=== PATIENT | male | born 1960 | race Hispanic/Latino ===

== ENCOUNTER 2020-05-11 10:54 | Emergency (ER) | payer OTHER ==
[2020-05-11 12:21] LABS: BASOPHILS % (AUTO) 0.4 % (0.0-5.0); EOSINOPHILS % (AUTO) 7.5 % (0.0-8.0); LYMPHOCYTES % (AUTO) 19.1 % (21.0-51.0); MEAN CORPUSCULAR HEMOGLOBIN 28.1 pg (27.0-33.0); MEAN CORPUSCULAR HGB CONC 32.1 g/dL (32.0-36.0); MEAN CORPUSCULAR VOLUME 87.3 fL (79-99); MONOCYTES % (AUTO) 8.9 % (3.0-13.0); NEUTROPHILS % (AUTO) 63.7 % (40.0-77.0); PLATELET COUNT (AUTO) 172 K/uL (130-400); RED BLOOD CELL COUNT(AUTO) 4.81 MIL/uL (4.50-6.20); WHITE BLOOD COUNT (AUTO) 5.2 K/uL (4.8-10.8)
[2020-05-11 12:33] LABS: CREATININE 0.9 mg/dL (0.5-1.5); POTASSIUM 3.9 mmol/L (3.5-5.1)
[2020-05-11 12:37] LABS: ALBUMIN 3.6 g/dL (3.5-5.0); BILIRUBIN,TOTAL 0.4 mg/dL (0.2-1.0); TOTAL PROTEIN, SERUM 8.1 g/dL (6.0-8.3)
[2020-05-11 14:41] LABS: INR 0.97 (0.85-1.15); PARTIAL THROMBOPLASTIN TIME 24.9 SEC (26.3-35.5); PROTHROMBIN TIME 10.5 SEC (9.6-11.6)
[2020-05-15] MEDS ORDERED: BACL10TA PO (16:12)
[2020-05-15] MEDS ORDERED: OMEP40CA13 PO (16:12)
[2020-05-15] MEDS ORDERED: ATOR40TA71 PO (16:12)
[2020-05-15] MEDS ORDERED: CYAN100010 PO (16:12)
[2020-05-15] MEDS ORDERED: CLOP75TA32 PO (16:12)
[2020-05-15] MEDS ORDERED: METO25TA6 PO (16:12)
[2020-05-15] MEDS ORDERED: LISI-613 PO (16:12)
[2020-05-15] MEDS ORDERED: AEC81 PO (16:12)
== END 2020-05-11 15:14 | disposition home or self-care (01) ==
LOC: EDH 10:54
DX: I72.4 Aneurysm of artery of lower extremity (principal); R19.09 Other intra-abdominal and pelvic swelling, mass and lump; I10 Essential (primary) hypertension; Z87.891 Personal history of nicotine dependence; Z88.0 Allergy status to penicillin; N50.3 Cyst of epididymis; I86.1 Scrotal varices; L91.0 Hypertrophic scar
CPT/HCPCS: 36415; 76870; 80053; 85025; 85610; 85730

== ENCOUNTER → 2020-05-11 | Outpatient (CLI) | payer OTHER ==
[~2020-05-11] MED LIST: AEC81 PO; ATOR40TA71 PO; BACL10TA PO; CLOP75TA32 PO; CYAN100010 PO; LISI-613 PO; METO25TA6 PO; OMEP40CA13 PO
== END | disposition home or self-care (01) ==
LOC: RAH 09:12
PROVIDERS: ATTEND Family Medicine
DX: N50.3 Cyst of epididymis (principal); I86.1 Scrotal varices; I72.8 Aneurysm of other specified arteries; L91.0 Hypertrophic scar
CPT/HCPCS: 76870

== ENCOUNTER → 2020-05-16 | Outpatient (CLI) | payer OTHER ==
[~2020-05-16] MED LIST changes: +CLINDAMYCIN 900 MG/D5% WATER 50 ML IV SCH; +CLINDAMYCIN IN 0.9 % SOD CHLOR 50 ML IV SCH
== END | disposition home or self-care (01) ==
LOC: DAH 05-11 10:00 → EDSTATUS 10:30
PROVIDERS: ATTEND Thoracic Surgery (Cardiothoracic Vascular Surgery)
DX: I72.8 Aneurysm of other specified arteries (principal); R10.31 Right lower quadrant pain; L91.0 Hypertrophic scar
CPT/HCPCS: 36415; 71045; 93005; J3490

== ENCOUNTER → 2020-06-26 | Outpatient (CLI) | payer OTHER ==
[~2020-06-26] MED LIST changes: -CLINDAMYCIN 900 MG/D5% WATER 50 ML IV SCH; -CLINDAMYCIN IN 0.9 % SOD CHLOR 50 ML IV SCH
[2020-06-26 11:01] LABS: CREATININE 0.9 mg/dL (0.5-1.5)
== END | disposition home or self-care (01) ==
LOC: LAB 10:22
PROVIDERS: ATTEND Thoracic Surgery (Cardiothoracic Vascular Surgery)
DX: I72.4 Aneurysm of artery of lower extremity (principal)
CPT/HCPCS: 36415; 82565; 84520

== ENCOUNTER → 2020-07-09 | Outpatient (CLI) | payer OTHER ==
[~2020-07-09] MED LIST changes: +CLOP75TA14 PO; +FAMO40TA7 PO; +IOHEXOL 350 MG/ML 100ML INFUS..BTL IV ONE; -LISI-613 PO; +LISI20TA24 PO
== END | disposition home or self-care (01) ==
LOC: RAH 10:06
PROVIDERS: ATTEND Thoracic Surgery (Cardiothoracic Vascular Surgery)
DX: I72.4 Aneurysm of artery of lower extremity (principal); I25.10 Atherosclerotic heart disease of native coronary artery without angina pectoris
CPT/HCPCS: 73706; Q9967

== ENCOUNTER 2020-07-12 11:07 | Day surgery (SDC) | payer OTHER ==
[2020-07-10 13:46] LABS: BASOPHILS % (AUTO) 0.5 % (0.0-5.0); EOSINOPHILS % (AUTO) 6.7 % (0.0-8.0); LYMPHOCYTES % (AUTO) 19.1 % (21.0-51.0); MEAN CORPUSCULAR HEMOGLOBIN 26.9 pg (27.0-33.0); MEAN CORPUSCULAR HGB CONC 31.9 g/dL (32.0-36.0); MEAN CORPUSCULAR VOLUME 84.5 fL (79-99); MONOCYTES % (AUTO) 6.6 % (3.0-13.0); NEUTROPHILS % (AUTO) 66.7 % (40.0-77.0); PLATELET COUNT (AUTO) 208 K/uL (130-400); RED BLOOD CELL COUNT(AUTO) 5.09 MIL/uL (4.50-6.20); RED CELL DISTRIBUTION WIDTH 13.7 % (11.0-15.5); WHITE BLOOD COUNT (AUTO) 8.2 K/uL (4.8-10.8)
[2020-07-10 13:51] LABS: APPEARANCE,URINE Clear (CLEAR); BILIRUBIN,URINE Negative (NEGATIVE); COLOR,URINE Yellow (YELLOW); GLUCOSE, URINE (UA) Negative (NEGATIVE); KETONES,URINE Negative (NEGATIVE); LEUKOCYTE ESTERASE ,URINE Negative (NEGATIVE); NITRATE,URINE Negative (NEGATIVE); OCCULT BLOOD,URINE Negative (NEGATIVE); PH,URINE 5.5 (5.0-8.0); PROTEIN,URINE Negative (NEGATIVE)
[2020-07-10 13:53] LABS: CREATININE 1.1 mg/dL (0.5-1.5); POTASSIUM 4.2 mmol/L (3.5-5.1)
[2020-07-10 13:56] LABS: PROTHROMBIN TIME 10.9 SEC (9.6-11.6)
[2020-07-10 13:58] LABS: PARTIAL THROMBOPLASTIN TIME 23.8 SEC (26.3-35.5)
[~2020-07-12] VITALS: Ht 157.5 cm; Wt 78.0 kg
[~2020-07-12 11:07] MED LIST changes: -BACL10TA PO; +CLINDAMYCIN 900 MG/D5% WATER 50 ML IV SCH; -CLOP75TA32 PO; -IOHEXOL 350 MG/ML 100ML INFUS..BTL IV ONE; -OMEP40CA13 PO; +SODIUM CHLORIDE 0.9% 500ML 500 ML IV SCH
[2020-07-12 11:15] VITALS: BP 126/78
[2020-07-12] MEDS ORDERED: SODIUM CHLORIDE 0.9% 1000ML 1,000 ML IV ONE (11:32)
[2020-07-12] MEDS ORDERED: SODIUM BICARB 50MEQ 50ML VIAL 50 ML ONE (13:29)
[2020-07-12] MEDS ORDERED: IODIXANOL 320 MG/ML 100 ML VIAL ONE (13:30)
[2020-07-12] MEDS ORDERED: MEPERIDINE-PF 25 MG/ML SYG ONE ×2 (13:30→14:30)
[2020-07-12] MEDS ORDERED: NITROGLYCERIN 2 MG/VIAL VIAL IV ONE (13:30)
[2020-07-12] MEDS ORDERED: MIDAZOLAM HCL 1 MG/ML 2ML VIAL ONE ×2 (13:30→14:31)
[2020-07-12] MEDS ORDERED: HEPARIN SODIUM 1000UNIT/ML 10ML VIAL ONE (13:30)
[2020-07-12] MEDS ORDERED: LIDOCAINE HCL 2% 20ML ONE (13:30)
[2020-07-12] MEDS ORDERED: CLINDAMYCIN 600 MG/D5% WATER 100 ML IV ONE (14:23)
[2020-07-12] MEDS ORDERED: IOHEXOL-350 50ML VIAL IV ONE (15:18)
[2020-07-12] MEDS ORDERED: CLOPIDOGREL BISULFATE 300 MG TAB ONE (15:51)
[2020-07-12] MEDS ORDERED: ASPIRIN 325MG EC TAB 325 MG TABLET.DR PO ONE (15:51)
[2020-07-12] MEDS ORDERED: SODIUM CHLORIDE 0.9% 1000ML 1,000 ML IV SCH (16:15)
== END 2020-07-12 22:30 | disposition home or self-care (01) ==
LOC: DAH 11:07 → DAHIP 16:13 → UNDOADMOB 16:13 → DAH 22:30 → UNDODISOB 22:30
PROVIDERS: ATTEND Internal Medicine Cardiovascular Disease
DX: I70.201 Unspecified atherosclerosis of native arteries of extremities, right leg (principal); Z20.822 Contact with and (suspected) exposure to COVID-19; I25.10 Atherosclerotic heart disease of native coronary artery without angina pectoris; I10 Essential (primary) hypertension; E78.5 Hyperlipidemia, unspecified; Z95.5 Presence of coronary angioplasty implant and graft; Z95.828 Presence of other vascular implants and grafts; Z79.01 Long term (current) use of anticoagulants; Z79.82 Long term (current) use of aspirin; Z79.899 Other long term (current) drug therapy
CPT/HCPCS: 36415; 37226; 71045; 75710; 80048; 81003; 85025; 85610; 85730; 86850; 86900; 86901; 86922; 93005; C1725; C1760; C1769 ×3; C1874; C1887; C1893 ×2; C1894; C9803; J1644 ×2; J2175 ×2; J2250 ×2; J3490 ×4; J7030; Q9967 ×2; U0003; 99156; 99157; G0378

== ENCOUNTER → 2020-12-25 | Outpatient (CLI) | payer OTHER ==
[~2020-12-25] MED LIST changes: -CLINDAMYCIN 900 MG/D5% WATER 50 ML IV SCH; -SODIUM CHLORIDE 0.9% 500ML 500 ML IV SCH
== END | disposition home or self-care (01) ==
LOC: LAB 11:04
PROVIDERS: ATTEND Internal Medicine Cardiovascular Disease
DX: I25.10 Atherosclerotic heart disease of native coronary artery without angina pectoris (principal); I72.4 Aneurysm of artery of lower extremity
CPT/HCPCS: 36415; 82565; 84520

== ENCOUNTER → 2023-07-06 | Outpatient (CLI) | payer OTHER ==
[~2023-07-06] MED LIST changes: +CLOP-31 PO; -CLOP75TA14 PO
[2023-07-06 12:12] LABS: BASOPHILS # (AUTO) 0.04 K/uL (0.00-0.20); BASOPHILS % (AUTO) 0.6 % (0.0-5.0); EOSINOPHILS # (AUTO) 0.52 K/uL (0.00-0.70); EOSINOPHILS % (AUTO) 7.3 % (0.0-8.0); HEMATOCRIT 39.8 % (42-54); IMMATURE GRANULOCYTE ABSOLUTE 0.05 K/uL (0-1); LYMPHOCYTES # (AUTO) 1.1 K/uL (1.0-4.8); LYMPHOCYTES % (AUTO) 15.2 % (21.0-51.0); MEAN CORPUSCULAR HEMOGLOBIN 30.6 pg (27.0-33.0); MEAN CORPUSCULAR HGB CONC 34.2 g/dL (32.0-36.0); MEAN CORPUSCULAR VOLUME 89.4 fL (79-99); MONOCYTES # (AUTO) 0.6 K/uL (0.1-1.0); NEUTROPHILS # (AUTO) 4.8 K/uL (1.8-7.7); NEUTROPHILS % (AUTO) 68.2 % (40.0-77.0); PLATELET COUNT (AUTO) 228 K/uL (130-400); RED BLOOD CELL COUNT(AUTO) 4.45 MIL/uL (4.50-6.20); RED CELL DISTRIBUTION WIDTH 16.8 % (11.0-15.5); WHITE BLOOD COUNT (AUTO) 7.1 K/uL (4.8-10.8)
[2023-07-06 12:16] LABS: CREATININE 0.9 mg/dL (0.5-1.5); POTASSIUM 4.1 mmol/L (3.5-5.1)
[2023-07-06 12:29] LABS: INR 0.94 (0.85-1.15); PROTHROMBIN TIME 10.9 SEC (9.6-11.6)
[2023-07-06 12:31] LABS: PARTIAL THROMBOPLASTIN TIME 24.5 SEC (26.3-35.5)
== END | disposition home or self-care (01) ==
LOC: LAB 09:29
PROVIDERS: ATTEND Internal Medicine Cardiovascular Disease
DX: I87.1 Compression of vein (principal); M79.604 Pain in right leg; M79.605 Pain in left leg; Z68.30 Body mass index [BMI] 30.0-30.9, adult; Z95.5 Presence of coronary angioplasty implant and graft
CPT/HCPCS: 36415; 80048; 85025; 85610; 85730

== ENCOUNTER → 2023-12-28 | Outpatient (CLI) | payer OTHER | END | disposition home or self-care (01) | LOC: LAB 11:45 | PROVIDERS: ATTEND Internal Medicine Cardiovascular Disease | DX: I73.9 Peripheral vascular disease, unspecified (principal) | CPT/HCPCS: 36415; 80048 ==

== ENCOUNTER → 2023-12-31 | Outpatient (CLI) | payer OTHER ==
[~2023-12-31] MED LIST changes: +IOHEXOL 350 MG/ML 100ML INFUS..BTL IV ONE
== END | disposition home or self-care (01) ==
LOC: RAH 08:19
PROVIDERS: ATTEND Internal Medicine Cardiovascular Disease
DX: I72.4 Aneurysm of artery of lower extremity (principal); I70.8 Atherosclerosis of other arteries; M47.815 Spondylosis without myelopathy or radiculopathy, thoracolumbar region; I70.0 Atherosclerosis of aorta; Z90.49 Acquired absence of other specified parts of digestive tract; Z95.828 Presence of other vascular implants and grafts
CPT/HCPCS: 75635; Q9967

== ENCOUNTER 2024-02-04 06:45 | Day surgery (SDC) | payer OTHER ==
[2024-02-02 12:10] VITALS: BP_SYST 164; BP_SYST 185; BP_DIAS 76; BP_DIAS 84; PULSE 82; RESP 18; TEMP 98.6
[2024-02-02 12:57] LABS: BASOPHILS # (AUTO) 0.03 K/uL (0.00-0.20); BASOPHILS % (AUTO) 0.4 % (0.0-5.0); EOSINOPHILS # (AUTO) 0.22 K/uL (0.00-0.70); EOSINOPHILS % (AUTO) 2.9 % (0.0-8.0); HEMATOCRIT 40.8 % (42-54); IMMATURE GRANULOCYTE ABSOLUTE 0.01 K/uL (0-1); LYMPHOCYTES # (AUTO) 0.8 K/uL (1.0-4.8); LYMPHOCYTES % (AUTO) 10.7 % (21.0-51.0); MEAN CORPUSCULAR HEMOGLOBIN 28.5 pg (27.0-33.0); MEAN CORPUSCULAR HGB CONC 32.6 g/dL (32.0-36.0); MEAN CORPUSCULAR VOLUME 87.4 fL (79-99); MONOCYTES # (AUTO) 0.5 K/uL (0.1-1.0); MONOCYTES % (AUTO) 6.1 % (3.0-13.0); NEUTROPHILS % (AUTO) 79.8 % (40.0-77.0); PLATELET COUNT (AUTO) 168 K/uL (130-400); RED BLOOD CELL COUNT(AUTO) 4.67 MIL/uL (4.50-6.20); RED CELL DISTRIBUTION WIDTH 13.5 % (11.0-15.5); WHITE BLOOD COUNT (AUTO) 7.6 K/uL (4.8-10.8)
[2024-02-02 13:05] LABS: CREATININE 0.9 mg/dL (0.5-1.3); POTASSIUM 3.9 mmol/L (3.5-5.1)
[2024-02-02 13:12] LABS: APPEARANCE,URINE CLEAR (CLEAR); BILIRUBIN,URINE NEGATIVE (NEGATIVE); COLOR,URINE YELLOW (YELLOW); GLUCOSE, URINE (UA) NEGATIVE (NEGATIVE); KETONES,URINE NEGATIVE (NEGATIVE); LEUKOCYTE ESTERASE ,URINE NEGATIVE Leu/uL (NEGATIVE); NITRATE,URINE NEGATIVE (NEGATIVE); OCCULT BLOOD,URINE NEGATIVE (NEGATIVE); PROTEIN,URINE NEGATIVE (NEGATIVE)
[2024-02-02 13:13] LABS: ADD UA MICROSCOPIC YES
[2024-02-02 13:15] LABS: MUCUS,URINE RARE LPF (None Seen); WBC,URINE 0-1 /HPF (0-1)
[2024-02-02 13:18] LABS: B-TYPE NATRIURETIC PEPTIDE 104 pg/mL (0-100)
[2024-02-02 13:28] LABS: INR 0.99 (0.85-1.15); PROTHROMBIN TIME 10.7 SEC (9.6-11.6)
[2024-02-02 13:29] LABS: PARTIAL THROMBOPLASTIN TIME 25.4 SEC (26.3-35.5)
[2024-02-04] VITALS (11 sets, daily range): BP systolic 123–156; BP diastolic 59–79; PULSE 44–90; RESP 11–21; TEMP 97–98.1
[~2024-02-04] VITALS: Ht 157.5 cm; Wt 73.8 kg
[~2024-02-04 06:45] MED LIST changes: -ATOR40TA71 PO; -CYAN100010 PO; -FAMO40TA7 PO; +GABA-529 PO; -IOHEXOL 350 MG/ML 100ML INFUS..BTL IV ONE; +RIVA2.5T PO; +ROSU40TA88 PO
[2024-02-04] MEDS: 0.9%NACL 1000ML 1,000 ML IV ONE (08:11)
[2024-02-04] MEDS ORDERED: MEPERIDINE-PF 25 MG/ML SYG ONE ×2 (09:06→09:51)
[2024-02-04] MEDS ORDERED: LIDOCAINE HCL 400MG/20ML VIAL ONE (09:06)
[2024-02-04] MEDS ORDERED: HEParin 10,000 UNIT/10ML (1,000 UNIT/ML) VIAL ONE (09:06)
[2024-02-04] MEDS ORDERED: HEParin-NS 1,000 UNIT/500 ML 1,500 ML IV ONE (09:06)
[2024-02-04] MEDS ORDERED: MIDAZOLAM HCL 1 MG/ML 2ML VIAL ONE ×2 (09:06→09:51)
[2024-02-04] MEDS ORDERED: NITROGLYCERIN 50MG VIAL ONE (09:07)
[2024-02-04] MEDS ORDERED: IODIXANOL 320 MG/ML 100 ML VIAL ONE (09:09)
[2024-02-04] MEDS ORDERED: ATROPINE 0.4MG VIAL IJ ONE (09:34)
[2024-02-04] MEDS ORDERED: ATROPINE 1MG SYG IVP ONE (09:36)
[2024-02-04] MEDS ORDERED: hydrALAZine 20MG/ML VIAL ONE (11:22)
[2024-02-04] MEDS ORDERED: 0.9%NACL 1000ML 1,000 ML IV SCH (12:00)
[2024-02-04] MEDS: RIVAROXABAN 20 MG TABLET PO SCH (12:48)
== END 2024-02-04 17:45 | disposition home or self-care (01) ==
LOC: DAH 06:45
PROVIDERS: ATTEND Internal Medicine Cardiovascular Disease
DX: I70.211 Atherosclerosis of native arteries of extremities with intermittent claudication, right leg (principal); I74.3 Embolism and thrombosis of arteries of the lower extremities; I25.10 Atherosclerotic heart disease of native coronary artery without angina pectoris; I10 Essential (primary) hypertension; E78.5 Hyperlipidemia, unspecified; Z95.5 Presence of coronary angioplasty implant and graft; Z95.1 Presence of aortocoronary bypass graft; Z88.0 Allergy status to penicillin; Z79.01 Long term (current) use of anticoagulants; Z79.82 Long term (current) use of aspirin; Z79.899 Other long term (current) drug therapy
CPT/HCPCS: 80048; 83880; 85025; 85610; 85730; 81001; 36415; 71045; 93005; 37184; 75716; 37185; 37221; 37226; C1769; C1894 ×2; C1760; C1893; C1757; C1874; C1725 ×2; C1876; J3490 ×2; J7030; J0461 ×2; J0360; J1644 ×2; J2250 ×2; J2175 ×2; Q9967; A4215; A4222; A4221; A4663; A4216; A4606; A4223 ×3; 75710; 96360; 96361; 99156; 99157

== ENCOUNTER 2025-01-21 03:45 | Observation (INO) | payer OTHER ==
[~2025-01-21] VITALS: Ht 157.5 cm; Wt 71.6 kg
[2025-01-21] VITALS (12 sets, daily range): BP systolic 109–141; BP diastolic 64–102; PULSE 60–86; RESP 12–22; TEMP 98.1–99.1; O2SAT 98–100
[~2025-01-21 03:45] MED LIST changes: -AEC81 PO; +CILO100T3 PO; +OMEP-420 PO; -RIVA2.5T PO; +RIVA20TA PO
--- NOTE | 2025-01-21 03:57 | ERN ---
ED Note History of Present Illness Stated Complaint: RT SIDED CHEST PAIN POST PROCEDURE Chief Complaint: Post-Op Problem Time Seen by MD: 03:53 Dictation: This is a 64-year-old male who came into the ER complaining of right-sided chest pain and swelling in the upper chest. Apparently patient underwent a right axillary fem bypass on 01/16/[address] Amanda, patient started having intractable pain in the right subclavian area came into the ER for further evaluation. He stated that the swelling started increasing throughout the day n o fever chills or rigors no open bleeding. No pus drainage Temperature 98.1 pulse 70 respirations 22 blood pressure 152/63 with a pulse oximetry of 98% on room air His chronic medical problems include hypertension, coronary artery disease status post CABG, hypercholesterolemia, right leg peripheral arterial disease and patient is on Xarelto Allergies: Coded Allergies: Penicillins (Unverified Allergy, Unknown, 05/15/20) Home Meds Reported Medications Cilostazol (Cilostazol) 100 Mg Tablet, 100 MG PO BID, TAB 01/13/25 Rivaroxaban (Xarelto) 20 Mg Tablet, 20 MG PO DAILY, TAB 01/13/25 Omeprazole (Omeprazole) 20 Mg Tab.rap.dr, 20 MG PO DAILY 11/23/24 Rosuvastatin Calcium (Rosuvastatin Calcium) 40 Mg Tablet, 40 MG PO HS, TAB 02/02/24 Gabapentin (Gabapentin) 100 Mg Capsule, 100 MG PO BID, CAP 02/02/24 Clopidogrel Bisulfate (Plavix) 75 Mg Tablet, 75 MG PO DAILY, TAB 07/11/20 Metoprolol Tartrate (Metoprolol Tartrate) 25 Mg Tablet, 12.5 MG PO BID, TAB 07/11/20 Lisinopril (Lisinopril) 20 Mg Tablet, 20 MG PO DAILY, TAB 05/15/20 Past Medical History Past Medical History: CAD, High Cholesterol, Hypertension, Other Additional Past Medical Hx: PAD Surgical History: CABG, Other Surgical History Other: MULTIPLE RIGHT LEG PROCEDURES TO IMPROVE CIRCULATION Family History: Negative RN Note Reviewed/Agreed w/PFSH: Yes Review of System Dictation Constitutional: Negative for fever,chills, and weight loss Eyes: Negative for injury, pain,redness, and discharge ENT: Negative for injury,pain or swelling Cardiovascular: Positive for right side chest pain, denied palpitations, and edema Respiratory: Negative for shortness of breath, cough, and wheezing, Abdomen/GI: Negative for abdominal pain, nausea, vomiting, diarrhea, and constipation Back: Negative for injury and pain : Negative for injury, bleeding and discharge MS/Extremity: Negative for injury and deformity Skin: Negative for rash, and discoloration Neuro: Negative for headache, weakness, numbness, tingling, and seizure Psych: Negative for suicide ideation, homicidal ideation, and hallucinations Initial Vital Sign VS Vital Signs Date Time Temp Pulse Resp B/P (MAP) Pulse Ox O2 Delivery O2 Flow Rate FiO2 01/21/25 03:46 98.1 70 22 152/63 98 Room Air 01/21/25 04:10 0 21 Physical Exam Dictation General: awake, alert, NAD generally anxious and uncomfortable Head/Face: Normocephalic, atraumatic Eyes: PERRL, EOMI, vision at baseline ENT: oral cavity clear, TMs clear, no signs of infection Neck: Trachea midline, supple, no nuchal rigidity Cardiovascular: RRR, normal S1/S2, No MRGs, no JVD right anterior axillary line swelling that is firm to palpation, tender. No active bleeding externally. Respiratory: CTAB, no respiratory distress, No rales or wheezes Abdomen: Soft, non-tender, non-distended, normal bowel sounds, no guarding or rebound. Skin: Warm, dry, normal turgor, no rash MS/Extremity: Pulses equal, no cyanosis, neurovascular intact, FROM Neuro: COAx4, GCS 15, strength 5/5, CN 2-12 intact, normal cerebellar exam, normal gait, Psych: Normal behavior, mood, and affect normal Extremities-trace edema without any palpable cords, Homans sign is negative Results (Laboratory/Radiology) Laboratory/Radiology Laboratory Tests Test 01/21/25 04:04 White Blood Count 7.9 K/uL (4.8-10.8) Red Blood Count 3.38 MIL/uL (4.50-6.20) L Hemoglobin 9.9 g/dL (14.0-18.0) L Hematocrit 29.0 % (42-54) L Mean Corpuscular Volume 85.8 fL (79-99) Mean Corpuscular Hemoglobin 29.3 pg (27.0-33.0) Mean Corpuscular Hemoglobin Concent 34.1 g/dL (32.0-36.0) Red Cell Distribution Width 14.3 % (11.0-15.5) Platelet Count 154 K/uL (130-400) Mean Platelet Volume 11.2 fL (7.5-10.5) H Immature Granulocyte % (Auto) 0.6 % (0-1) Neutrophils (%) (Auto) 62.7 % (40.0-77.0) Lymphocytes (%) (Auto) 16.9 % (21.0-51.0) L Monocytes (%) (Auto) 11.3 % (3.0-13.0) Eosinophils (%) (Auto) 8.1 % (0.0-8.0) H Basophils (%) (Auto) 0.4 % (0.0-5.0) Neutrophils # (Auto) 4.9 K/uL (1.8-7.7) Lymphocytes # (Auto) 1.3 K/uL (1.0-4.8) Monocytes # (Auto) 0.9 K/uL (0.1-1.0) Eosinophils # (Auto) 0.64 K/uL (0.00-0.70) Basophils # (Auto) 0.03 K/uL (0.00-0.20) Absolute Immature Granulocyte (auto 0.05 K/uL (0-1) Nucleated Red Blood Cells 0.0 % (0.0-0.19) Sodium Level 138 mmol/L (136-145) Potassium Level 3.7 mmol/L (3.5-5.1) Chloride Level 105 mmol/L (101-111) Carbon Dioxide Level 23 mmol/L (21-32) Blood Urea Nitrogen 17 mg/dL (7-18) Creatinine 0.8 mg/dL (0.5-1.3) Glomerular Filtration Rate Calc 98 mL/min (>90) Random Glucose 126 mg/dL (70-105) H Total Calcium 8.5 mg/dL (8.5-10.1) Labs Reviewed?: Yes EKG Comment: Twelve lead EKG done on 01/21/2025 at 3:55 a.m. showed a heart rate of 78, IA interval 184, QRS 144, QT/QTC 409/454 Impression normal sinus rhythm with a multiple PVCs, left bundle branch block and biphasic T-wave in V3 and ST depressions in V4 V5 and V6. Compared to the EKG done on 11/23/2024 there are no new EKG changes noted. EKG rhythm strip-normal sinus rhythm with a intraventricular conduction delay and nonspecific ST-T changes. Interpreted by ER MD Dr. Hernandez Ultrasound Comment: REASON: Right anterior axillary area swelling -Post op ? hematoma ORDERING PHYSICIAN: GISSEL HERNANDEZ MD PROCEDURE: CHEST SCAN - US CHEST WALL SOFT TISSUE EXAM: US Chest Limited. CLINICAL HISTORY: Right anterior axillary area swelling, possibly postoperative hematoma. TECHNIQUE: Real-time ultrasound of the chest to evaluate for pleural effusion. COMPARISON: None provided. FINDINGS: In the area of concern around the right anterior chest wall, there are two 4.0 x 4.2 x 3.7 cm and 6.0 x 4.5 x 5.0 cm hypoechoic structures without vascularity, concerning hematomas. Technically limited study due to the presence of bandages and pain in the area of concern. IMPRESSION: There are two localized hematomas in the area of concern around the right anterior chest wall. /[place] DICTATED BY: FAHAD BAEZA Jr., MD DATE: 01/21/25644 ELECTRONICALLY SIGNED BY: FAHAD BAEZA Jr., MD DATE: 01/21/25644 ED Course ED Course Orders Procedure Category Date Status Time Cbc With Differential LAB 01/21/25 Complete 03:55 Basic Metabolic Panel LAB 01/21/25 Complete 03:55 Chest 1vw RAD 01/21/25 Resulted 03:55 Morphine 4mg Syg PHA 01/21/25 Complete (Morphine 4mg Syg) 04:00 Ondansetron 4mg Inj PHA 01/21/25 Complete (Zofran 4mg Inj) 04:00 12 Lead Ekg Tracing- EKG 01/21/25 Logged Technical 04:02 Us Chest Wall Soft US 01/21/25 Resulted Tissue 04:22 Hydromorphone 0.5mg PHA 01/21/25 Complete Syg (Dilaudid 0.5mg 05:00 Edm Admit Bridge Order ADM 01/21/25 Transmitted 06:42 Current Medications Medications (Trade) Dose Ordered Sig/Jailyn Route PRN Reason Start Time Stop Time Status Last Admin Dose Admin Hydromorphone HCl (DiLAUDid 0.5MG INJ) 0.5 mg ONCE ONCE IVP 01/21/25 05:00 01/21/25 05:01 DC 01/21/25 04:56 Morphine Sulfate (morPHINE 4MG SYG) 4 mg ONCE ONCE IVP 01/21/25 04:00 01/21/25 04:01 DC 01/21/25 04:10 Ondansetron HCl (zoFRAN 4MG INJ) 4 mg ONCE ONCE IVP 01/21/25 04:00 01/21/25 04:01 DC 01/21/25 04:10 Vital Signs Date Time Temp Pulse Resp B/P (MAP) Pulse Ox O2 Delivery O2 Flow Rate FiO2 01/21/25 06:14 64 19 149/60 100 Room Air* 0 21 01/21/25 04:10 98.2 71 18 147/66 100 Room Air* 0 21 01/21/25 03:46 98.1 70 22 152/63 98 Room Air We will perform diagnostic labs, advanced imaging and administer medications according to the patient's complaint. Once the results are available, will review and personally interpreted the labs to rule out any acute life- threatening emergency the trach require immediate intervention and treatment. I will then re-evaluate the patient after treatment and diagnostic exams have return to determine whether the patient requires any further testing, can safely be discharged home or need further admission to hospital for additional treatment and evaluation. Hold Xarelto until bleeding is controlled Labs reviewed CBC showed a hemoglobin of 9.9 white count 7.9 platelets 154 BNP 7 is with a normal limits. Chest x-ray is unremarkable for any infiltrates, please note that patient's hemoglobin was 11 on 01/17/2025 this is a significant drop in hemoglobin Ultrasound of the right chest wall shows 2 collections of hematoma. Patient has a intractable pain has a required significant amount of medication and I recommended admission for monitoring hemoglobin serially and transfuse as needed. Also to adequately control his postop pain 6:45 a.m. Patient accepted by [facility] mid-level provider and will be admitted to [facility] for admission and further management Medical Decision Making MDM Differential diagnosis: Postop bleeding and hematoma, abscess, possible expected surgical changes, right shoulder pain Rationale: Tests considered and ordered secondary to shared decision making include: labs, ECG and radiology Previous outside records reviewed: Old ER visits. Risk of complication and/or morbidity or mortality of patient management: None Medications-Per medication reconciliation Need for hospitalization: Patient does meet criteria for hospitalization. Need for emergency major/minor surgery: No There are no social concerns with this patient. Prescription drug management Prescriptions will include symptomatic care Patient's prior external medical records from other ER visits were reviewed by me as indicated. Prior testing and results from previous visits were reviewed. Prior tests were taken into account with medical decision making and resource utilization, independent historian/historians were used to obtain complete medical history. I independently interpreted the test that were performed, results were reviewed by me and considered findings on radiology if ordered. Medical management and examination interpretation discussions were had by me with other qualified healthcare professionals as indicated for the patient's care. Problem List Problem List: (1) Hematoma of right chest wall (2) Peripheral arterial disease with history of revascularization (3) Coronary artery disease (4) Hypertension (5) Right-sided chest wall pain (6) Blood loss anemia DX & DISP Disposition: Inpatient Decision to Admit Time: 04:32 Departure Impression: Primary Impression: Hematoma of right chest wall Additional Impressions: Peripheral arterial disease with history of revascularization, Coronary artery disease, Hypertension, Right-sided chest wall pain, Blood loss anemia Condition: Stable Additional Instructions: Patient was informed of all the diagnostic labs and procedures conducted in the emergency room today and demonstrated understanding of the results. I personally reviewed and interpreted all the diagnostic exams performed in the ER today. The patient will be admitted to the hospital for further treatment and evaluation. Disposition-admit to facility Condition-stable/guarded Course-uncertain at this time Pain status-decreased Assessment-exam unchanged Admission Certification- I certify that the patients status is appropriate and is based on my best clinical judgment and the patient's condition as documented in the medical records Referrals: SUHAIL WONG MD (PCP) GISSEL HERNANDEZ MD Jan 21, 2025 03:57
[2025-01-21 04:11] LABS: IMMATURE GRANULOCYTE ABSOLUTE 0.05 K/uL (0-1); NUCLEATED RED BLOOD CELLS 0.0 % (0.0-0.19); PLATELET COUNT (AUTO) 154 K/uL (130-400); RED BLOOD CELL COUNT(AUTO) 3.38 MIL/uL (4.50-6.20); RED CELL DISTRIBUTION WIDTH 14.3 % (11.0-15.5); WHITE BLOOD COUNT (AUTO) 7.9 K/uL (4.8-10.8)
[2025-01-21 04:18] LABS: CREATININE 0.8 mg/dL (0.5-1.3); GLOMERULAR FILTR. RATE CALC 98.0 mL/min (>90); GLUCOSE,RANDOM 126.0 mg/dL (70-105); SODIUM SERUM 138.0 mmol/L (136-145); UREA NITROGEN, BLOOD 17.0 mg/dL (7-18)
--- NOTE | 2025-01-21 04:49 | HMCIMG ---
EXAM: CR Chest, 1 view CLINICAL HISTORY: Right side chest pain. COMPARISON: Chest radiograph dated 01/13/2025. FINDINGS: Hyperinflated lungs, likely mild COPD. The lungs show no infiltrates or other acute findings. No pleural effusion or pneumothorax. The cardiomediastinal silhouette is within normal limits. Status poststernotomy. No acute osseous abnormality. Mild scoliosis. Mild osteopenia. IMPRESSION: No acute cardiopulmonary process is evident. Mild COPD. No interval changes. /[place]
--- NOTE | 2025-01-21 05:45 | HMCIMG ---
EXAM: US Chest Limited. CLINICAL HISTORY: Right anterior axillary area swelling, possibly postoperative hematoma. TECHNIQUE: Real-time ultrasound of the chest to evaluate for pleural effusion. COMPARISON: None provided. FINDINGS: In the area of concern around the right anterior chest wall, there are two 4.0 x 4.2 x 3.7 cm and 6.0 x 4.5 x 5.0 cm hypoechoic structures without vascularity, concerning hematomas. Technically limited study due to the presence of bandages and pain in the area of concern. IMPRESSION: There are two localized hematomas in the area of concern around the right anterior chest wall. /[place]
[2025-01-21] MEDS ORDERED: LACTULOSE 20 GM/30 ML UDCUP PO PRN (07:00)
[2025-01-21] MEDS ORDERED: NITROGLYCERIN 0.4 MG SL TAB SL PRN (07:30)
[2025-01-21] MEDS ORDERED: ARTIFICAL TEARS SOL 15 ML OP PRN (07:30)
[2025-01-21] MEDS ORDERED: ALBUTEROL 0.083% 2.5 MG/3 ML INH IH PRN (07:30)
[2025-01-21] MEDS ORDERED: LIDOCAINE HCL 2% VISCOUS 30 ML, MAG/ALUM/SIMETH 30ML 30 ML, DICYCLOMINE HCL 20 MG PO PRN (07:30)
[2025-01-21] MEDS: FAMOTIDINE 20MG TAB PO SCH (07:40)
[2025-01-21] MEDS ORDERED: ACET-2079 PO (08:04)
[2025-01-21 09:19] LABS: INR 1.15 (0.85-1.15)
--- NOTE | 2025-01-21 09:47 | NUR ---
Emergency contact: Nury Newsome, spouse: [phone]
--- NOTE | 2025-01-21 09:50 | EKG ---
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
[2025-01-21] MEDS: HYDROcodone/APAP 5/325 1 TAB TABLET PO PRN (10:04)
--- NOTE | 2025-01-21 10:27 | HP ---
[facility] HISTORY & PHYSICAL Date Patient Seen: Jan 21, 2025 Time of Visit: 10:26 Supervising Physician: Dr. Fredi Tran Primary Care Physician: Dr. Power Trujillo Outpatient Specialists: [ ] Inpatient Consults: Dr. Amanda (CTS) PROBLEM LIST: Post-operative hematomas x 2 to right chest Recent axillary fem bypass on 01/16/2025 Anemia due to above Diabetes mellitus type 2 Hypertension CAD with history of CABG COPD without exacerbation PAD on Xarelto HPI: 64-year old male with past medical history of CABG, Severe PAD with recent axillary femoral bypass done on 01/16/2025, DM type 2, HTN, HLD that presented to the ER with complaints of increasing bump to right chest where incision is and severe pain to that area. Patient states that swelling to right chest started two days after procedure on 01/16/2025 but pain became intractable, prompting him to come to the ER. Patient states he takes Plavix and Xarelto at home. On arrival to the ER, US chest showed there are two localized hematomas in the area of concern around the right anterior chest wall. Hemoglobin 9.9. Upon assessment, patient is AAOX3. Seen in the ER. Large right chest hematoma noted. Marked already with permanent marker. States pain has improved. Right LE incision clean, dry and intact. No family at bedside. Patient will be admitted for further workup and treatment. CTS consulted. Goals of care discussed, verbalized understanding. Plan: CT chest/abdomen/pelvis ordered Consult CTS Monitor hematoma H&H every 6 hours PT/INR and fibrinogen now Hold Eliquis and Plavix PAST MEDICAL HX: see above PAST SURGICAL HX: noncontributory SOCIAL HISTORY: No tobacco, ETOH, or illicit drug use Coded Allergies: Penicillins (Unverified Allergy, Unknown, 05/15/20) REVIEW OF SYSTEMS: 12 point ROS reviewed with patient. Pertinent positives mentioned above. Otherwise negative. PHYSICAL EXAM: GENERAL: alert, weak, awake oriented x 3 HEENT: EOMI, Sclera non icteric, moist mucosa NECK: Supple, no JVD, trachea midline LUNGS: Clear breath sounds bilaterally. No wheezes HEART: Regular rate and rhythm. Normal S1 and S2, without murmurs (+) right chest hematoma with swelling, incision clean, dry and intact ABD: Abdomen soft, nontender. Bowel sounds present EXT: No clubbing cyanosis or edema (+) RLE incision clean, dry and intact NEURO: AAOX3, follows commands Vital Signs (last 8hr) Date Time Temp Pulse Resp B/P (MAP) Pulse Ox O2 Delivery O2 Flow Rate FiO2 01/21/25 08:10 100 Room Air* 0 01/21/25 07:41 98.2 65 12 121/64 99 Room Air 01/21/25 06:14 64 19 149/60 100 Room Air* 0 21 01/21/25 04:10 98.2 71 18 147/66 100 Room Air* 0 21 01/21/25 03:46 98.1 70 22 152/63 98 Room Air LABS: Hematology Labs: Test 01/21/25 04:04 Range/Units White Blood Count 7.9 4.8-10.8 K/uL Red Blood Count 3.38 L 4.50-6.20 MIL/uL Hemoglobin 9.9 L 14.0-18.0 g/dL Hematocrit 29.0 L 42-54 % Mean Corpuscular Volume 85.8 79-99 fL Mean Corpuscular Hemoglobin 29.3 27.0-33.0 pg Mean Corpuscular Hemoglobin Concent 34.1 32.0-36.0 g/dL Red Cell Distribution Width 14.3 11.0-15.5 % Platelet Count 154 130-400 K/uL Mean Platelet Volume 11.2 H 7.5-10.5 fL Immature Granulocyte % (Auto) 0.6 0-1 % Neutrophils (%) (Auto) 62.7 40.0-77.0 % Lymphocytes (%) (Auto) 16.9 L 21.0-51.0 % Monocytes (%) (Auto) 11.3 3.0-13.0 % Eosinophils (%) (Auto) 8.1 H 0.0-8.0 % Basophils (%) (Auto) 0.4 0.0-5.0 % Neutrophils # (Auto) 4.9 1.8-7.7 K/uL Lymphocytes # (Auto) 1.3 1.0-4.8 K/uL Monocytes # (Auto) 0.9 0.1-1.0 K/uL Eosinophils # (Auto) 0.64 0.00-0.70 K/uL Basophils # (Auto) 0.03 0.00-0.20 K/uL Absolute Immature Granulocyte (auto 0.05 0-1 K/uL Nucleated Red Blood Cells 0.0 0.0-0.19 % Chemistry Labs: Test 01/21/25 04:04 Range/Units Sodium Level 138 136-145 mmol/L Potassium Level 3.7 3.5-5.1 mmol/L Chloride Level 105 101-111 mmol/L Carbon Dioxide Level 23 21-32 mmol/L Blood Urea Nitrogen 17 7-18 mg/dL Creatinine 0.8 0.5-1.3 mg/dL Glomerular Filtration Rate Calc 98 >90 mL/min Random Glucose 126 H 70-105 mg/dL Total Calcium 8.5 8.5-10.1 mg/dL Coagulation Labs: Test 01/21/25 09:00 Range/Units Prothrombin Time 12.0 H 9.6-11.6 SEC Prothromb Time International Ratio 1.15 0.85-1.15 Activated Partial Thromboplast Time 30.6 26.3-35.5 SEC DIAGNOSTICS / RADIOLOGY RESULTS: SERVICE 0422 REASON: Right anterior axillary area swelling -Post op ? hematoma ORDERING PHYSICIAN: GISSEL CAICEDO MD PROCEDURE: CHEST SCAN - US CHEST WALL SOFT TISSUE EXAM: US Chest Limited. CLINICAL HISTORY: Right anterior axillary area swelling, possibly postoperative hematoma. TECHNIQUE: Real-time ultrasound of the chest to evaluate for pleural effusion. COMPARISON: None provided. FINDINGS: In the area of concern around the right anterior chest wall, there are two 4.0 x 4.2 x 3.7 cm and 6.0 x 4.5 x 5.0 cm hypoechoic structures without vascularity, concerning hematomas. Technically limited study due to the presence of bandages and pain in the area of concern. IMPRESSION: There are two localized hematomas in the area of concern around the right anterior chest wall. /[place] PLAN NEURO: Minimize central acting medications as possible. Maintain fall precautions, adequate lighting during the day PULMONARY: Supplemental 02 as needed. Maintain aspiration precautions at all times CARDIOVASCULAR: Follow hemodynamics. Vital signs per facility protocol GI & NUTRITION: Continue with nutritional support. Continue stool softeners and laxatives as needed. KIDNEYS & ELECTROLYTES: Strict monitoring of intake, output and overall fluid balance. Avoid nephrotoxic medications to the extent possible. Medications to be dosed according to renal function. Monitor electrolytes and replace as needed ENDOCRINE: Maintain blood glucose between 100-180 at all times. Hypoglycemia protocol in place INFECTIOUS DISEASE: Trend temperature, WBC and procalcitonin level Follow cultures, deescalate antibiotics as soon as possible. Panculture if new onset fever ONCOLOGY/HEMATOLOGY/COAGULATION: Monitor for s/s of bleeding Monitor hemoglobin, coagulation studies as needed SKIN: Pressure ulcer prevention per facility protocol Specialty mattress ORTHO/REHAB: Continue PT/OT Prophylaxis: Continue GI and DVT prophylaxis Code Status: Full Resuscitation Disposition: TBD Other: Total patient care time exceeds 35 minutes excluding all procedures. NITO PANDA NP Jan 21, 2025 10:26
[2025-01-21] MEDS ORDERED: IOHEXOL-350 75 ML VIAL IV ONE (12:57)
--- NOTE | 2025-01-21 14:00 | NUR ---
GAVE REPORT TO CARMEN [place], PATIENT WAS TRANSPORTED VIA STRETCHER WITH ALL BELONGINGS.
--- NOTE | 2025-01-21 14:05 | NUR ---
ARRIVAL Patient arrived on floor from ER overflow. Patient alert and oriented with only c/o right chest pain. Patient states IV MS helped, but still in pain. No SOB with activity. Will continue nursing care.
--- NOTE | 2025-01-21 16:44 | NUR ---
DCP: INITIAL ASSESSMENT Patient lives with spouse. He has no home health or DME. Patient is able to complete ADLs independently and drives. PCP is Dr. Power Trujillo. Pharmacy is [facility] in [place]. Patient voiced no safety concerns regarding returning home and states he has no difficulty with housing or buying food. DCP is home. Addendum: 01/21/25 at 1648 by СЕРГЕЙ BENITEZ SS Amended: Links added.
[2025-01-22] VITALS (7 sets, daily range): BP systolic 129–149; BP diastolic 52–74; PULSE 65–81; RESP 18–20; TEMP 98.3–98.9; O2SAT 81–98
[2025-01-22 06:46] LABS: IMMATURE GRANULOCYTE ABSOLUTE 0.07 K/uL (0-1); NUCLEATED RED BLOOD CELLS 0.0 % (0.0-0.19); PLATELET COUNT (AUTO) 148 K/uL (130-400); RED BLOOD CELL COUNT(AUTO) 3.23 MIL/uL (4.50-6.20); RED CELL DISTRIBUTION WIDTH 14.2 % (11.0-15.5); WHITE BLOOD COUNT (AUTO) 6.2 K/uL (4.8-10.8)
[2025-01-22 07:00] LABS: CREATININE 0.8 mg/dL (0.5-1.3); GLOMERULAR FILTR. RATE CALC 98.0 mL/min (>90); GLUCOSE,RANDOM 102.0 mg/dL (70-105); SODIUM SERUM 137.0 mmol/L (136-145); UREA NITROGEN, BLOOD 14.0 mg/dL (7-18)
--- NOTE | 2025-01-22 13:22 | PN ---
[facility] PROGRESS NOTE Date Patient Seen: Jan 22, 2025 Time of Visit: 13:19 Supervising Physician: Dr De Leon Primary Care Physician: Dr. Power Trujillo Outpatient Specialists: [ ] Inpatient Consults: Dr. Amanda (CTS) PROBLEM LIST: Post-operative hematomas x 2 to right chest Recent axillary fem bypass on 01/16/2025 Anemia due to above Diabetes mellitus type 2 Hypertension CAD with history of CABG COPD without exacerbation PAD on Xarelto INTERVAL HISTORY: Patient seen and examined, all labs and imaging reviewed, patient status post from the axillary fem bypass from 01/16, continues with the large hematomas on the right chest, but denies any chest pain or shortness of breath, Patient is alert and oriented x4, vital signs are stable, afebrile, Pending CTS evaluation Plan: Review of labs, all are good, INR in range. Chest x-ray is clear Follow Cardiothoracic Surgeons recommendations Holding anticoagulation or antiplatelets Follow hemoglobin Telemetry REVIEW OF SYSTEMS: 12 point ROS reviewed with patient. Pertinent positives mentioned above. Otherwise negative. PHYSICAL EXAM: GENERAL: alert, weak, awake oriented x 3 HEENT: EOMI, Sclera non icteric, moist mucosa NECK: Supple, no JVD, trachea midline LUNGS: Clear breath sounds bilaterally. No wheezes HEART: Regular rate and rhythm. Normal S1 and S2, without murmurs (+) right chest hematoma with swelling, incision clean, dry and intact ABD: Abdomen soft, nontender. Bowel sounds present EXT: No clubbing cyanosis or edema (+) RLE incision clean, dry and intact NEURO: AAOX3, follows commands Vital Signs (last 8hr) Date Time Temp Pulse Resp B/P (MAP) Pulse Ox O2 Delivery O2 Flow Rate FiO2 01/22/25 07:39 98.2 81 18 144/52 99 Room Air 01/22/25 07:24 77 18 N/A Room Air 21 LABS: Hematology Labs: Test 01/22/25 10:23 01/22/25 06:30 Range/Units Hemoglobin 9.4 L 14.0-18.0 g/dL Hematocrit 28.3 L 42-54 % White Blood Count 6.2 4.8-10.8 K/uL Red Blood Count 3.23 L 4.50-6.20 MIL/uL Mean Corpuscular Volume 85.8 79-99 fL Mean Corpuscular Hemoglobin 28.8 27.0-33.0 pg Mean Corpuscular Hemoglobin Concent 33.6 32.0-36.0 g/dL Red Cell Distribution Width 14.2 11.0-15.5 % Platelet Count 148 130-400 K/uL Mean Platelet Volume 10.8 H 7.5-10.5 fL Immature Granulocyte % (Auto) 1.1 H 0-1 % Neutrophils (%) (Auto) 60.6 40.0-77.0 % Lymphocytes (%) (Auto) 17.0 L 21.0-51.0 % Monocytes (%) (Auto) 12.2 3.0-13.0 % Eosinophils (%) (Auto) 8.9 H 0.0-8.0 % Basophils (%) (Auto) 0.2 0.0-5.0 % Neutrophils # (Auto) 3.7 1.8-7.7 K/uL Lymphocytes # (Auto) 1.1 1.0-4.8 K/uL Monocytes # (Auto) 0.8 0.1-1.0 K/uL Eosinophils # (Auto) 0.55 0.00-0.70 K/uL Basophils # (Auto) 0.01 0.00-0.20 K/uL Absolute Immature Granulocyte (auto 0.07 0-1 K/uL Nucleated Red Blood Cells 0.0 0.0-0.19 % Chemistry Labs: Test 01/22/25 06:30 01/22/25 05:55 Range/Units Sodium Level 137 136-145 mmol/L Potassium Level 4.0 3.5-5.1 mmol/L Chloride Level 104 101-111 mmol/L Carbon Dioxide Level 26 21-32 mmol/L Blood Urea Nitrogen 14 7-18 mg/dL Creatinine 0.8 0.5-1.3 mg/dL Glomerular Filtration Rate Calc 98 >90 mL/min Random Glucose 102 70-105 mg/dL Total Calcium 8.7 8.5-10.1 mg/dL Whole Blood Glucose 99 70-110 MG/DL Coagulation Labs: Test 01/21/25 09:00 Range/Units Prothrombin Time 12.0 H 9.6-11.6 SEC Prothromb Time International Ratio 1.15 0.85-1.15 Activated Partial Thromboplast Time 30.6 26.3-35.5 SEC Fibrinogen 434 H 180-350 mg/dL DIAGNOSTICS / RADIOLOGY RESULTS: [ ] PLAN NEURO: Minimize central acting medications as possible. Maintain fall precautions, adequate lighting during the day PULMONARY: Supplemental 02 as needed. Maintain aspiration precautions at all times CARDIOVASCULAR: Follow hemodynamics. Vital signs per facility protocol GI & NUTRITION: Continue with nutritional support. Continue stool softeners and laxatives as needed. KIDNEYS & ELECTROLYTES: Strict monitoring of intake, output and overall fluid balance. Avoid nephrotoxic medications to the extent possible. Medications to be dosed according to renal function. Monitor electrolytes and replace as needed ENDOCRINE: Maintain blood glucose between 100-180 at all times. Hypoglycemia protocol in place INFECTIOUS DISEASE: Trend temperature, WBC and procalcitonin level Follow cultures, deescalate antibiotics as soon as possible. Panculture if new onset fever ONCOLOGY/HEMATOLOGY/COAGULATION: Monitor for s/s of bleeding Monitor hemoglobin, coagulation studies as needed SKIN: Pressure ulcer prevention per facility protocol Specialty mattress ORTHO/REHAB: Continue PT/OT Prophylaxis: Continue GI and DVT prophylaxis Code Status: Full Resuscitation Disposition: TBD Other: Total patient care time exceeds 37 minutes excluding all procedures. MARIBEL NUGENT Jan 22, 2025 13:22
--- NOTE | 2025-01-22 18:55 | HMCIMG ---
EXAM: CTA Right Upper Extremity with and without Intravenous Contrast. CLINICAL HISTORY: HEMATOMA- CHECK RIGHT AXILLA TECHNIQUE: Axial CTA images of the right Upper Extremity performed with and without intravenous contrast in the arterial phase with coronal and sagittal reformatted images generated and reviewed. 3-D reformatted images generated on an independent workstation and also reviewed. COMPARISON: None provided. FINDINGS: VASCULATURE AND SOFT TISSUE: Status Post right Axillary femoral bypass graft. Present study shows an ill-defined hypodense collection/ hematoma with few internal air pockets and significant keeley collection fat stranding,measuring approximately 9.2 ??? 6.6 cm (AP x TR ) , in the right anterior chest wall. This collection is located anterior to the axillary bypass graft. Post-contrast angiography demonstrates opacification of the visualized extent of the bypass graft with preserved flow into the right brachial artery and proximal radial and ulnar arteries. No definite contrast extravasation or evidence of graft thrombosis is seen in the imaged extent. Bones: No acute osseous abnormality. IMPRESSION: Right post-axillary femoral bypass graft in situ with preserved graft patency and distal runoff into brachial, proximal radial, and ulnar arteries. Associated ill-defined 9.2 x 6.6 cm hypodense collection with air pockets in the right anterior chest wall, anterior to the graft as described. Possibility of hematoma / infected collection to be considered. /[place]
--- NOTE | 2025-01-22 19:15 | PN ---
SUBJECTIVE: This gentleman underwent an axillary to popliteal bypass, was discharged on the first day. He returns with a hematoma in the infraclavicular area and axilla. CT angiogram performed yesterday demonstrates no acute leak and the hematoma is stable. PLAN: We will hold on Plavix for now. Continue to monitor. There is no drainage, we will continue our pressure dressing and antibiotics. TID: [id number] RECEIPT: [id number]
--- NOTE | 2025-01-22 20:45 | HMCIMG ---
EXAM: CTA chest, abdomen, and Pelvis with IV contrast CLINICAL HISTORY: Hematoma in the chest wall. TECHNIQUE: Thin collimated axial CTA images of the chest, abdomen, and pelvis were obtained, with sagittal and coronal reformatted images also submitted. CT scan is done according to ALARA (As Low As Reasonably Achievable). CONTRAST: Contrast information is not available COMPARISON: Same-day upper limb angiography. FINDINGS: Chest: Mild volume loss of the right lung. Mild bilateral posterior pleural thickening and subsegmental atelectasis in the superior posterior basal segment of bilateral lower lobes. No lung nodules. No evidence of pneumothorax. No pleural effusions. Evidence of right axillofemoral bypass graft. A large hematoma in the right chest wall involving the right pectoralis major and minor muscles measuring approximately 11 x 5.6 x 7.7 cm in its transverse, anteroposterior, and craniocaudal dimensions, and diffuse subcutaneous fat stranding. Subcutaneous edema and fat stranding along the right lateral chest wall and small air locules are identified in the right pectoralis major muscle, consistent with recent postoperative changes. Normal patency of the right axillofemoral bypass graft. A small 5 mm pseudoaneurysm is identified from the right subclavian artery just distal to the right axillofemoral bypass graft. Normal patency of the aorta, brachiocephalic trunk, left common carotid, and left subclavian artery. Atherosclerotic calcification of the thoracic aorta. No evidence of aneurysmal dilatation or dissection. No pericardial effusion. The heart size is within normal limits. Scattered coronary artery calcifications. Atherosclerotic calcification of the aortic arch and descending thoracic aorta. No evidence of aneurysmal dilatation or dissection. No axillary, supraclavicular, or mediastinal lymphadenopathy. No focal thyroid abnormality. Osseous structures are unremarkable. Abdomen and pelvis: Mild fatty infiltration of the liver with heterogeneous coarse attenuation, probable changes of liver parenchymal disease. Post cholecystectomy status. The pancreas, spleen, adrenals, or kidneys. There is no bowel wall thickening. Moderate amount of fecal residue in the large bowel loops. Scattered colonic diverticulosis without evidence of diverticulitis. No features of bowel obstruction or ileus. The appendix is normal. There is no abnormality within the urinary bladder. Borderline prostatomegaly. The seminal vesicle appears unremarkable. Unremarkable abdominal aorta, celiac trunk, superior mesenteric artery, inferior mesenteric artery, bilateral renal arteries, bilateral common iliac, external, and internal iliac arteries. No aneurysm, dissection, or hemodynamically significant abnormality in the abdominal vessels. Atherosclerotic calcification of the abdominal aorta, origin of the visceral arteries, infrarenal aorta, and common iliac arteries. Approximately 40-50% narrowing of the origin of the superior mesenteric artery and 20% narrowing of the origin of the bilateral renal arteries. Diffuse atherosclerotic calcification of the infrarenal aorta and bilateral common iliac arteries. Approximately 40% narrowing of the origin of the bilateral common iliac arteries. A thrombosed stent is identified in the right external iliac artery. 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 No lymphadenopathy. No free fluid. There is no acute osseous abnormality. Degenerative changes in the sacroiliac, superolateral joint, and multilevel degenerative facet arthropathy. No acute osseous abnormality. IMPRESSIONS: Evidence of right axillofemoral bypass graft. A large hematoma in the right chest wall involving the right pectoralis major and minor muscles measuring approximately 11 x 5.6 x 7.7 cm in its transverse, anteroposterior, and craniocaudal dimensions, and diffuse subcutaneous fat stranding. Subcutaneous edema and fat stranding along the right lateral chest wall and small air locules are identified in the right pectoralis major muscle, consistent with recent postoperative changes. Normal patency of the right axillofemoral bypass graft. A small 5 mm pseudoaneurysm is identified from the right subclavian artery just distal to the right axillofemoral bypass graft. Normal patency of the aorta, brachiocephalic trunk, left common carotid, and left subclavian artery. Atherosclerotic calcification of the thoracic aorta. No evidence of aneurysmal dilatation or dissection. Thrombosed stent is identified in the right external iliac artery. Thrombosed stent in the right common femoral artery and superficial femoral artery with a surrounding thrombosed 5.0 x 4.6 cm pseudoaneurysm. Post cholecystectomy status. Mild heterogeneous coarse attenuation of the liver is probably a change in liver parenchymal disease. No acute intra-abdominal pathology. Moderate amount of fecal residue in the large bowel loops. Borderline prostatomegaly. Mild volume loss of the right lung. Mild bilateral posterior pleural thickening and subsegmental atelectasis in the superior posterior basal segment of bilateral lower lobes. No lung nodules. No evidence of pneumothorax. /[place]
[2025-01-23] VITALS (7 sets, daily range): BP systolic 115–134; BP diastolic 62–66; PULSE 69–78; RESP 18–20; TEMP 97.9–98.7; O2SAT 98–100
[2025-01-23] MEDS: CLINDAMYCIN IVPB 600MG/50ML 50 ML IV SCH (09:02)
--- NOTE | 2025-01-23 16:28 | PN ---
[facility] PROGRESS NOTE Date Patient Seen: Jan 23, 2025 Time of Visit: 16:28 Supervising Physician: [ ] Primary Care Physician: Dr. Power Trujillo Outpatient Specialists: [ ] Inpatient Consults: Dr. Amanda (CTS) PROBLEM LIST: Post-operative hematomas x 2 to right chest Recent axillary fem bypass on 01/16/2025 Anemia due to above Diabetes mellitus type 2 Hypertension CAD with history of CABG COPD without exacerbation PAD on Xarelto INTERVAL HISTORY: Patient seen and examined, all labs and imaging reviewed, patient status post from the axillary fem bypass from 01/16, continues with the large hematomas on the right chest, but denies any chest pain or shortness of breath, Patient is alert and oriented x4, vital signs are stable, afebrile, Pending CTS evaluation Plan: Review of labs, all are good, INR in range. Chest x-ray is clear Follow Cardiothoracic Surgeons recommendations Holding anticoagulation or antiplatelets Follow hemoglobin Telemetry REVIEW OF SYSTEMS: 12 point ROS reviewed with patient. Pertinent positives mentioned above. Otherwise negative. PHYSICAL EXAM: GENERAL: alert, weak, awake oriented x 3 HEENT: EOMI, Sclera non icteric, moist mucosa NECK: Supple, no JVD, trachea midline LUNGS: Clear breath sounds bilaterally. No wheezes HEART: Regular rate and rhythm. Normal S1 and S2, without murmurs (+) right chest hematoma with swelling, incision clean, dry and intact ABD: Abdomen soft, nontender. Bowel sounds present EXT: No clubbing cyanosis or edema (+) RLE incision clean, dry and intact NEURO: AAOX3, follows commands Vital Signs (last 8hr) Date Time Temp Pulse Resp B/P (MAP) Pulse Ox O2 Delivery O2 Flow Rate FiO2 01/23/25 11:00 97.9 69 20 115/63 100 Room Air 01/23/25 09:00 98 Room Air* 0 21 LABS: Hematology Labs: Test 01/23/25 02:06 01/22/25 06:30 Range/Units Hemoglobin 9.0 L 14.0-18.0 g/dL Hematocrit 26.0 L 42-54 % White Blood Count 6.2 4.8-10.8 K/uL Red Blood Count 3.23 L 4.50-6.20 MIL/uL Mean Corpuscular Volume 85.8 79-99 fL Mean Corpuscular Hemoglobin 28.8 27.0-33.0 pg Mean Corpuscular Hemoglobin Concent 33.6 32.0-36.0 g/dL Red Cell Distribution Width 14.2 11.0-15.5 % Platelet Count 148 130-400 K/uL Mean Platelet Volume 10.8 H 7.5-10.5 fL Immature Granulocyte % (Auto) 1.1 H 0-1 % Neutrophils (%) (Auto) 60.6 40.0-77.0 % Lymphocytes (%) (Auto) 17.0 L 21.0-51.0 % Monocytes (%) (Auto) 12.2 3.0-13.0 % Eosinophils (%) (Auto) 8.9 H 0.0-8.0 % Basophils (%) (Auto) 0.2 0.0-5.0 % Neutrophils # (Auto) 3.7 1.8-7.7 K/uL Lymphocytes # (Auto) 1.1 1.0-4.8 K/uL Monocytes # (Auto) 0.8 0.1-1.0 K/uL Eosinophils # (Auto) 0.55 0.00-0.70 K/uL Basophils # (Auto) 0.01 0.00-0.20 K/uL Absolute Immature Granulocyte (auto 0.07 0-1 K/uL Nucleated Red Blood Cells 0.0 0.0-0.19 % Chemistry Labs: Test 01/22/25 06:30 01/22/25 05:55 Range/Units Sodium Level 137 136-145 mmol/L Potassium Level 4.0 3.5-5.1 mmol/L Chloride Level 104 101-111 mmol/L Carbon Dioxide Level 26 21-32 mmol/L Blood Urea Nitrogen 14 7-18 mg/dL Creatinine 0.8 0.5-1.3 mg/dL Glomerular Filtration Rate Calc 98 >90 mL/min Random Glucose 102 70-105 mg/dL Total Calcium 8.7 8.5-10.1 mg/dL Whole Blood Glucose 99 70-110 MG/DL DIAGNOSTICS / RADIOLOGY RESULTS: [ ] PLAN NEURO: Minimize central acting medications as possible. Maintain fall precautions, adequate lighting during the day PULMONARY: Supplemental 02 as needed. Maintain aspiration precautions at all times CARDIOVASCULAR: Follow hemodynamics. Vital signs per facility protocol GI & NUTRITION: Continue with nutritional support. Continue stool softeners and laxatives as needed. KIDNEYS & ELECTROLYTES: Strict monitoring of intake, output and overall fluid balance. Avoid nephrotoxic medications to the extent possible. Medications to be dosed according to renal function. Monitor electrolytes and replace as needed ENDOCRINE: Maintain blood glucose between 100-180 at all times. Hypoglycemia protocol in place INFECTIOUS DISEASE: Trend temperature, WBC and procalcitonin level Follow cultures, deescalate antibiotics as soon as possible. Panculture if new onset fever ONCOLOGY/HEMATOLOGY/COAGULATION: Monitor for s/s of bleeding Monitor hemoglobin, coagulation studies as needed SKIN: Pressure ulcer prevention per facility protocol Specialty mattress ORTHO/REHAB: Continue PT/OT Prophylaxis: Continue GI and DVT prophylaxis Code Status: Full Resuscitation Disposition: TBD Other: Total patient care time exceeds 37 minutes excluding all procedures. NITO PANDA NP Jan 23, 2025 16:28
--- NOTE | 2025-01-23 18:43 | DS ---
[facility] DISCHARGE SUMMARY Date Patient Seen: Jan 23, 2025 Time of Visit: 18:43 Supervising Physician:Dr. Rob Oden Primary Care Physician: Dr. Power Trujillo Outpatient Specialists: [ ] Inpatient Consults: Dr. Amanda (CTS) PROBLEM LIST: Post-operative hematomas x 2 to right chest Recent axillary fem bypass on 01/16/2025, improved Anemia due to above, stable Diabetes mellitus type 2 Hypertension CAD with history of CABG COPD without exacerbation PAD on Xarelto HPI (per admitting provider) 64-year old male with past medical history of CABG, Severe PAD with recent axillary femoral bypass done on 01/16/2025, DM type 2, HTN, HLD that presented to the ER with complaints of increasing bump to right chest where incision is and severe pain to that area. Patient states that swelling to right chest started two days after procedure on 01/16/2025 but pain became intractable, prompting him to come to the ER. Patient states he takes Plavix and Xarelto at home. On arrival to the ER, US chest showed there are two localized hematomas in the area of concern around the right anterior chest wall. Hemoglobin 9.9. Upon assessment, patient is AAOX3. Seen in the ER. Large right chest hematoma noted. Marked already with permanent marker. States pain has improved. Right LE incision clean, dry and intact. No family at bedside. Patient will be admitted for further workup and treatment. CTS consulted. Goals of care discussed, verbalized understanding. HOSPITAL COURSE: Patient was admitted due to right chest pain were he was found to have two hematomas post axillary femoral bypass on 01/16/2025. Cardiothoracic was consulted and ordered CT chest/abdomen with contrast which showed patent bypass graft and hematomas. Dr. Amanda evaluated patient and has cleared patient for discharge with orders to hold Xarelto and Plavix for two more days. PT/INR WNL. Hemoglobin stable. Today, patient is AAOX3. Right chest hematoma has decreased drastically and patient denies any pain. States he is ready to go home. RX for Clindamycin sent to pharmacy. ADvised to follow up with PCP and CTS, verbalize understanding. New Medications: Clindamycin HCl (Cleocin HCl) 300 Mg Capsule 300 MG PO BID for 5 Days, #10 CAP Continued Medications: Acetaminophen with Codeine (Acetaminophen-Cod #3 Tablet) 300 Mg-30 Mg Tablet 1 TAB PO [id number] PRN for pain for 30 Days, #60 TAB 0 Refills Gabapentin (Gabapentin) 100 Mg Capsule 100 MG PO BID, CAP Lisinopril (Lisinopril) 20 Mg Tablet 20 MG PO DAILY, TAB Metoprolol Tartrate (Metoprolol Tartrate) 25 Mg Tablet 12.5 MG PO BID, TAB Omeprazole (Omeprazole) 20 Mg Tab.rap.dr 20 MG PO DAILY Rosuvastatin Calcium (Rosuvastatin Calcium) 40 Mg Tablet 40 MG PO HS, TAB Discontinued Medications: Cilostazol (Cilostazol) 100 Mg Tablet 100 MG PO BID, TAB Clopidogrel Bisulfate (Plavix) 75 Mg Tablet 75 MG PO DAILY, TAB Rivaroxaban (Xarelto) 20 Mg Tablet 20 MG PO DAILY, TAB PHYSICAL EXAM: GENERAL: alert, weak, awake oriented x 3 HEENT: EOMI, Sclera non icteric, moist mucosa NECK: Supple, no JVD, trachea midline LUNGS: Clear breath sounds bilaterally. No wheezes HEART: Regular rate and rhythm. Normal S1 and S2, without murmurs (+) right chest hematoma with swelling, incision clean, dry and intact ABD: Abdomen soft, nontender. Bowel sounds present EXT: No clubbing cyanosis or edema (+) RLE incision clean, dry and intact NEURO: AAOX3, follows commands FOLLOW-UP: Follow-up with PCP in 2-[address] Amanda in one week RECOMMENDATIONS: See Discharge Instructions This case was seen and discussed with my supervising physician. More than 30 minutes spent on discharge process, including evaluation of the patient, discussion with nursing staff, medication reconciliation and follow-up appoin NITO Nolasco NP Jan 23, 2025 18:43
--- NOTE | 2025-01-23 18:52 | NUR ---
DISCHARGE Discharge instructions given to patient Patient verbalized knowledge and understanding. All questions/concerns addressed. Patient's belongings back to patient including home meds. Patient is pending private transportation to arrive.
[2025-01-24] MEDS ORDERED: CLIN300C3 PO (00:15)
--- NOTE | 2025-01-25 03:41 | PN ---
SUBJECTIVE: A 64-year-old underwent an axillary to popliteal bypass and was discharged soon after surgery and was readmitted with a hematoma. SUBJECTIVE: The Pletal and Plavix were discontinued. CT angiogram demonstrated no active extravasation. Hematoma in place. No drainage. PLAN: We will continue with oral antibiotics and conservative therapy. The patient to be discharged on 01/23/2025. Follow up home. For now the patient to monitor hematoma. TID: [id number] RECEIPT: [id number]
== END 2025-01-23 20:00 | disposition home or self-care (01) ==
LOC: EDH 03:45 → EDHIP 07:01 → 2DH 14:05
PROVIDERS: ADMIT Internal Medicine Critical Care Medicine; ATTEND Internal Medicine Critical Care Medicine
DX: S20.211A Contusion of right front wall of thorax, initial encounter (principal); I10 Essential (primary) hypertension; I25.10 Atherosclerotic heart disease of native coronary artery without angina pectoris; E78.00 Pure hypercholesterolemia, unspecified; J44.9 Chronic obstructive pulmonary disease, unspecified; E11.51 Type 2 diabetes mellitus with diabetic peripheral angiopathy without gangrene; D64.9 Anemia, unspecified; D50.0 Iron deficiency anemia secondary to blood loss (chronic); R53.1 Weakness; Z79.899 Other long term (current) drug therapy; Z98.890 Other specified postprocedural states; X58.XXXA Exposure to other specified factors, initial encounter; Y93.89 Activity, other specified; Y92.89 Other specified places as the place of occurrence of the external cause; Y99.8 Other external cause status
CPT/HCPCS: 96376 ×3; 96375; 99285; 80048 ×2; 85025 ×2; 85384; 85610; 85730; 82948 ×3; 36415 ×3; 71045; 71270; 73206; 74178; 76604; 93005; 94664; 85014 ×5; 85018 ×5; 96365; 96366; G0378 ×61; J2270 ×12; J2405; Q9967; J1171; Q0163; J3490 ×2